=== PATIENT | female | born 1990 | race Caucasian/White ===

== ENCOUNTER → 2018-01-27 | Outpatient (CLI) | payer BC ==
[2018-01-27 08:06] LABS: Cholesterol 163 mg/dL (<200); Glucose 77 mg/dL (74-99); HDL Cholesterol 68 mg/dL (40-60); LDL Cholesterol,Calculated 71 mg/dL (0-99); Triglycerides 121 mg/dL (<150)
[2018-01-27 13:25] LABS: Hemoglobin A1C 4.5 % (4.0-6.0)
== END | disposition home or self-care (01) ==
LOC: LABWHC1 07:00
PROVIDERS: ATTEND Obstetrics & Gynecology
DX: Z00.00 Encounter for general adult medical examination without abnormal findings (principal)
CPT/HCPCS: 36415; 80061; 82947; 83036

== ENCOUNTER → 2018-03-04 | Outpatient (CLI) | payer BC ==
[2018-03-04 08:00] LABS: HCT 32.9 % (34.0-46.0); HGB 11.5 gm/dL (11.4-16.0); MCH 29.9 pg (25.0-35.0); MCHC 34.8 g/dL (31.0-37.0); Mean Platelet Volume 7.2; Platelet Count 224 k/uL (150-450); RBC 3.83 m/uL (3.80-5.40); RDW 13.3 % (11.5-15.5); WBC 11.9 k/uL (3.8-10.6)
== END | disposition home or self-care (01) ==
LOC: LABWHC1 07:24
PROVIDERS: ATTEND Obstetrics & Gynecology
DX: Z34.82 Encounter for supervision of other normal pregnancy, second trimester (principal)
CPT/HCPCS: 36415; 85027; 86850

== ENCOUNTER → 2018-03-06 | Outpatient (CLI) | payer BC | LOC: LABWHC1 08:50 | PROVIDERS: ATTEND Obstetrics & Gynecology | DX: Z34.82 Encounter for supervision of other normal pregnancy, second trimester (principal) | CPT/HCPCS: 36415; 82950 ==

== ENCOUNTER 2018-05-31 05:57 | Inpatient (IN) | payer BC ==
--- NOTE | 2018-05-30 20:14 | P.HPOB ---
History of Present Illness H&P Date: 05/30/18 Chief Complaint: Induction of labor This is a 27 y.o. female 2, para 1, with an estimated date of confinement of 06/02/2018, estimated gestational age of 39-5/7 weeks, who presents for induction of labor. She is feeling irregular contractions and pressure. course has been uncomplicated. labs: Hepatitis B surface antigen-neg RPR-neg Rubella-immune Blood type-O+ Antibody screen-neg Hemoglobin-12.9 Random glucose-81 1 hr GTT-106 GBS-neg OB Hx: . History of 1 vaginal delivery. Systems Coordinator Hx: No hx STDs Review of Systems Constitutional: Denies chills, Denies fever Eyes: denies blurred vision, denies pain Cardiovascular: Denies chest pain, Denies shortness of breath Gastrointestinal: Reports abdominal pain (irregular contractions), Denies diarrhea, Denies nausea, Denies vomiting Genitourinary: Reports pelvic pain, Reports Musculoskeletal: Reports low back pain Neurological: Denies numbness, Denies weakness Psychiatric: Denies anxiety, Denies depression Past Medical History Past Medical History: No Reported History Additional Past Medical History / Comment(s): Eczema History of Any Multi-Drug Resistant Organisms: None Reported Past Surgical History: No Surgical Hx Reported Past Anesthesia/Blood Transfusion Reactions: No Reported Reaction Past Psychological History: No Psychological Hx Reported Smoking Status: Never smoker Past Alcohol Use History: Occasional Past Drug Use History: None Reported - Past Family History Mother History Unknown: Yes Medications and Allergies Home Medications Medication Instructions Recorded Confirmed Type Ixz-Koau-Owlkk Acid 1 cap PO DAILY 09/17/16 09/18/16 History [-U Capsule (formulary)] Allergies Allergy/AdvReac Type Severity Reaction Status Date / Time Penicillins Allergy Rash/Hives Verified 09/18/16 03:11 Exam Osteopathic Statement: *. No significant issues noted on an osteopathic structural exam other than those noted in the History and Physical/Consult. HEENT: within normal limits Heart: regular rate and rhythm Lungs: clear to ausculation bilaterally Abdomen: soft, heart tones: 140's by doppler Extremities: neg. Delmy's Assessment and Plan (1) 39 weeks gestation of Status: Acute Code(s): Z3A.39 - 39 WEEKS GESTATION OF SNOMED Code( s): 22614114 Plan: Proceed with oxytocin induction of labor. Expectant management. Epidural anesthesia if desired.
[2018-05-31] MEDS ORDERED: OXYTOCIN 10 UNIT/ML 1 ML VIAL IM PRN (06:06)
[2018-05-31] MEDS ORDERED: LIDOCAINE 1% 20 ML VIAL (10MG/ML) FOR IV START INTRADERMA PRN (06:06)
[2018-05-31] MEDS ORDERED: TERBUTALINE 1 MG/ML VIAL SQ PRN (06:06)
[2018-05-31] MEDS ORDERED: LIDOCAINE 1% (PF) 10 MG/ML (30 ML SDV) SQ PRN (06:06)
[2018-05-31] MEDS ORDERED: CARBOPROST TROMETHAMINE 250 MCG/ML 1 ML AMP IM PRN (06:06)
[2018-05-31] MEDS ORDERED: METHYLERGONOVINE 0.2 MG/ML 1 ML AMP IM PRN (06:06)
[2018-05-31] MEDS: LACTATED RINGERS 1,000 ML IV SCH ×3 (06:16→17:00)
[2018-05-31] MEDS: OXYTOCIN 20 UNITS/1000 ML NS 1,000 ML IV SCH ×2 (06:24→19:19)
[2018-05-31 06:45] LABS: Basophils % (A) 0 %; Eosinophils # (A) 0.2 k/uL (0-0.7); Eosinophils % (A) 2 %; HCT 35.2 % (34.0-46.0); HGB 12.2 gm/dL (11.4-16.0); Lymphocytes # (A) 1.6 k/uL (1.0-4.8); Lymphocytes % (A) 17 %; MCH 29.7 pg (25.0-35.0); MCHC 34.6 g/dL (31.0-37.0); MCV 85.9 fL (80.0-100.0); Mean Platelet Volume 7.5; Monocytes # (A) 0.4 k/uL (0-1.0); Monocytes % (A) 5 %; Neutrophils # (A) 6.8 k/uL (1.3-7.7); Neutrophils % (A) 74 %; Platelet Count 197 k/uL (150-450); RDW 13.5 % (11.5-15.5); WBC 9.1 k/uL (3.8-10.6)
[2018-05-31] MEDS ORDERED: ROPIVACAINE 100 MG, fentaNYL (PF) 200 MCG in SODIUM CHLORIDE 0.9% 76 ML EPIDURAL ONE (14:38)
--- NOTE | 2018-05-31 18:54 | P.PROBDLV ---
Vaginal Delivery Note - . Vaginal Delivery Note: The patient progressed to complete dilation after oxytocin induction of labor and artificial rupture of membranes with clear fluid noted. She did receive epidural anesthesia. Once reaching complete dilation, she began pushing. 's head came to a crown. With one further push, the infant's head delivered across the perineum in a left occiput anterior lie. Infant's nose and mouth are bulb suctioned at the perineum. With one further push, the remainder the infant easily delivers and is placed on mother's abdomen. A short cord was noted. Cord was clamped and cut and was taken to warmer for evaluation. A viable female was noted with scores of 9 at 1 minute and 9 at 5 minutes and infant weight of 7 lbs. 14 oz. Placenta delivered shortly thereafter, intact, with a three-vessel cord. Uterus contracted fairly well after oxytocin was given and uterine massage was carried out. Inspection of the perineum revealed a second-degree perineal laceration. This area was anesthetized with 1% lidocaine and then sutured with 30 and 2-0 Vicryl suture in the usual multilayer fashion. Estimated blood loss is approximately 200 mL's. Mother and infant are in stable condition.
[2018-05-31] MEDS ORDERED: SIMETHICONE 80 MG CHEWABLE PO PRN (19:23)
[2018-05-31] MEDS ORDERED: BENZOCAINE/MENTHOL SPRAY 1 GM/SPRAY AEROSOL TOPICAL PRN (19:23)
[2018-05-31] MEDS ORDERED: HYDROCORTISONE 2.5% RECTAL CREAM 30 GM TUBE RECTAL PRN (19:23)
[2018-05-31] MEDS ORDERED: ZOLPIDEM 5 MG TAB PO PRN (19:23)
[2018-05-31] MEDS ORDERED: ACETAMINOPHEN TAB 325 MG TAB PO PRN (19:23)
[2018-05-31] MEDS ORDERED: diphenhydrAMINE 50 MG CAP PO PRN (19:23)
[2018-05-31] MEDS ORDERED: diphenhydrAMINE 50 MG/ML 1 ML VIAL IVP PRN ×2 (19:23)
[2018-05-31] MEDS ORDERED: LANOLIN CREAM 5 GM TUBE TOPICAL PRN (19:23)
[2018-05-31] MEDS ORDERED: diphenhydrAMINE 25 MG CAP PO PRN (19:23)
[2018-05-31] MEDS ORDERED: WITCH HAZEL 1 EACH MED..PAD TOPICAL PRN (19:23)
[2018-05-31] MEDS ORDERED: OXYTOCIN 20 UNITS/1000 ML NS 1,000 ML IV SCH (19:23)
[2018-05-31] MEDS: IBUPROFEN 600 MG TAB PO PRN (22:05)
[2018-05-31] MEDS: SENNOSIDES-DOCUSATE SODIUM 1 EACH TAB PO SCH ×2 (22:05)
[2018-06-01] MEDS: IBUPROFEN 600 MG TAB PO PRN ×3 (03:51→19:19)
[2018-06-01 07:48] LABS: Basophils % (A) 0 %; Eosinophils # (A) 0.1 k/uL (0-0.7); Eosinophils % (A) 1 %; HCT 28.9 % (34.0-46.0); Lymphocytes # (A) 1.9 k/uL (1.0-4.8); Lymphocytes % (A) 17 %; MCH 30.1 pg (25.0-35.0); MCHC 34.5 g/dL (31.0-37.0); MCV 87.4 fL (80.0-100.0); Mean Platelet Volume 7.6; Monocytes # (A) 0.4 k/uL (0-1.0); Monocytes % (A) 4 %; Neutrophils # (A) 8.3 k/uL (1.3-7.7); Neutrophils % (A) 75 %; Platelet Count 179 k/uL (150-450); RBC 3.31 m/uL (3.80-5.40); RDW 13.7 % (11.5-15.5)
--- NOTE | 2018-06-01 08:17 | P.DS ---
Providers Date of admission: 05/31/18 05:57 Expected date of discharge: 06/01/18 Attending physician: Regina King Primary care physician: Stated None - Discharge Diagnosis(es) (1) 39 weeks gestation of Current Visit: No Status: Acute Hospital Course: This is a 27-year-old female 2 para 1 at 39-5/7 weeks who presented for induction of labor. She underwent oxytocin induction of labor and delivered vaginally a viable female with scores of 9 at 1 minute and 9 at 5 minutes and weight of 7 lbs. 14 oz. Her course has been uncomplicated. Lochia is decreasing. She is breast-feeding. Vital signs are stable. Abdomen is soft with fundus firm and nontender. Extremities show negative Homans. Impression is status post vaginal delivery day #1. Plan is to discharge home today. Routine instructions are given. She will be given a prescription for ibuprofen. She has a breast pump at home. She is advised to call the office if she has any further questions or concerns prior to her appointment time. Procedures: Oxytocin induction of labor Spontaneous vaginal delivery of a viable female infant on 05/31/2018 Patient Condition at Discharge: Stable Plan - Discharge Summary New Discharge Prescriptions: New Ibuprofen [Motrin] 600 mg PO Q6HR PRN #60 tab PRN Reason: Mild Pain Or Fever >= 100.5 Continue Dpd-Xyjs-Dcdrg Acid [-U Capsule (formulary)] 1 cap PO DAILY Discharge Medication List Plo-Bcuj-Wdnoa Acid [-U Capsule (formulary)] 1 cap PO DAILY [History] Ibuprofen [Motrin] 600 mg PO Q6HR PRN #60 tab 06/01/18 [Rx] Follow up Appointment(s)/Referral(s): Regina King DO [Doctor of Osteopathic Medicine] - 6 Weeks Activity/Diet/Wound Care/Special Instructions: Instructions 1. Do not begin any exercise program for 3 weeks. 2. Do not resume sexual relations for 3 weeks or longer if uncomfortable. 3. You may take tub baths or showers at any time. 4. You may use tampons if desired after 3 weeks. 5. Keep the area of episiotomy (stitches) clean and dry. 6. If you are not nursing, wear a good fitting, supportive bra during the day and limit fluid intake for at least 1 week to prevent breast engorgement. 7. Call the office, [phone], within the next week to make appointment for your 6 week checkup if it has not already been made. 8. Report any of the following occurrences to the doctor promptly: a. Heavy, excessive bleeding b. Chills, fever c. Burning or frequency of urination d. Pain or redness and breasts if nursing e. Increasing pain or swelling in episiotomy (stitches). In addition to the above instructions, the following additional should be followed: 1. No heavy lifting or straining (exercising) until after 6 week checkup. 2. Keep abdominal incision clean and dry: You may wear a dressing if more comfortable. 3. Make office appointment for 10 days after going home or as instructed by her doctor. Discharge Disposition: HOME SELF-CARE
[2018-06-01] MEDS: SENNOSIDES-DOCUSATE SODIUM 1 EACH TAB PO SCH ×2 (08:32→19:19)
[2018-06-01] MEDS ORDERED: Rhogam IMMUNE GLOBULIN 1,500 UNIT/1 ML IM ONE (11:51)
[2018-06-02 00:01] VITALS: TEMP 98.4
[2018-06-02] MEDS: IBUPROFEN 600 MG TAB PO PRN (08:24)
[2018-06-02] MEDS: SENNOSIDES-DOCUSATE SODIUM 1 EACH TAB PO SCH (08:25)
[2018-06-02 09:26] VITALS: BP 112/64; PULSE 93; RESP 18
== END 2018-06-02 10:30 | disposition home or self-care (01) | DRG 775 ==
LOC: 4FBP 05:57
PROVIDERS: ADMIT Obstetrics & Gynecology; ATTEND Obstetrics & Gynecology
PROC: 10E0XZZ Delivery of Products of Conception, External Approach (ICD-10-PCS; principal; 2018-05-31)
PROC: 0KQM0ZZ Repair Perineum Muscle, Open Approach (ICD-10-PCS; 2018-05-31)
PROC: 00HU33Z Insertion of Infusion Device into Spinal Canal, Percutaneous Approach (ICD-10-PCS; 2018-05-31)
PROC: 3E0R3BZ Introduction of Anesthetic Agent into Spinal Canal, Percutaneous Approach (ICD-10-PCS; 2018-05-31)
PROC: 3E033VJ Introduction of Other Hormone into Peripheral Vein, Percutaneous Approach (ICD-10-PCS; 2018-05-31)
PROC: 10907ZC Drainage of Amniotic Fluid, Therapeutic from Products of Conception, Via Natural or Artificial Opening (ICD-10-PCS; 2018-05-31)
DX: O69.3XX0 Labor and delivery complicated by short cord, not applicable or unspecified (principal); Z37.0 Single live birth; O70.1 Second degree perineal laceration during delivery; Z3A.39 39 weeks gestation of pregnancy; Z88.0 Allergy status to penicillin; Z87.2 Personal history of diseases of the skin and subcutaneous tissue
CPT/HCPCS: 85025; 85461

== ENCOUNTER → 2018-12-17 | Outpatient (CLI) | payer BC ==
[2018-12-17 07:34] LABS: Basophils % (A) 0 %; Eosinophils # (A) 0.2 k/uL (0-0.7); Eosinophils % (A) 2 %; HCT 38.3 % (34.0-46.0); HGB 12.8 gm/dL (11.4-16.0); Lymphocytes # (A) 2.7 k/uL (1.0-4.8); Lymphocytes % (A) 33 %; MCH 28.1 pg (25.0-35.0); MCHC 33.4 g/dL (31.0-37.0); MCV 84.1 fL (80.0-100.0); Mean Platelet Volume 7.1; Monocytes # (A) 0.4 k/uL (0-1.0); Monocytes % (A) 5 %; Neutrophils # (A) 4.7 k/uL (1.3-7.7); Neutrophils % (A) 59 %; Platelet Count 277 k/uL (150-450); RBC 4.56 m/uL (3.80-5.40); RDW 13.3 % (11.5-15.5); WBC 8.1 k/uL (3.8-10.6)
[2018-12-17 11:10] LABS: ALT 27 U/L (8-44); AST 27 U/L (13-35); Alkaline Phosphatase 115 U/L (41-126); Calcium 9.1 mg/dL (8.7-10.3); Carbon Dioxide 28.5 mmol/L (21.6-31.8); Chloride 107 mmol/L (96-109); Cholesterol 118 mg/dL (0-200); Glucose 83 mg/dL (70-110); Potassium 3.7 mmol/L (3.5-5.5); Sodium 142 mmol/L (135-145); Total Bilirubin 0.5 mg/dL (0.2-1.2); Total Protein 6.2 g/dL (6.2-8.2); Triglycerides <50.0 mg/dL (0.0-149.0); VLDL Calculation 9.98 mg/dL (5.00-40.00)
== END ==
LOC: LABWHC1 07:05
PROVIDERS: ATTEND Nurse Practitioner Family
DX: Z00.00 Encounter for general adult medical examination without abnormal findings (principal)
CPT/HCPCS: 36415; 80053; 80061; 84439; 84443; 85025

== ENCOUNTER → 2019-01-19 | Outpatient (CLI) | payer BC | END | disposition home or self-care (01) | LOC: LABWHC1 07:05 | PROVIDERS: ATTEND Nurse Practitioner Family | DX: R94.6 Abnormal results of thyroid function studies (principal) | CPT/HCPCS: 36415; 84439; 84443; 84481 ==

== ENCOUNTER 2019-07-06 06:55 | Emergency (ER) | payer BC ==
[2019-07-06 07:04] VITALS: RESP 18
[2019-07-06] MEDS ORDERED: METOCLOPRAMIDE 5 MG/ML 2 ML VIAL IVP STA (07:09)
[2019-07-06] MEDS ORDERED: SODIUM CHLORIDE 0.9% 1,000 ML IV STA (07:25)
--- NOTE | 2019-07-06 07:35 | ED ---
General Adult HPI - General Chief complaint: Dizziness Stated complaint: dizziness/14 wks preg Time Seen by Provider: 07/06/19 07:08 Source: patient Mode of arrival: ambulatory Limitations: no limitations - History of Present Illness Initial comments: Dictation was produced using [employer] dictation software. please excuse any grammatical, word or spelling errors. Chief Complaint: 28-year-old female who is approximately 14 weeks presents with dizziness. History of Present Illness: She 28-year-old female she is 14 weeks . This is her third . Patient has established care with coronary care unit nurse. Patient states she's been feeling dizzy since yesterday. She had one episode of vomiting yesterday. Patient has been having some URI type symptoms as well. Patient denies any pelvic pain or vaginal bleeding. Patient had one episode of nonbilious nonbloody emesis yesterday. Denies any cough or sore throat. She just has a runny nose. Patient does take her vitamins. The ROS documented in this emergency department record has been reviewed and confirmed by me. Those systems with pertinent positive or negative responses have been documented in the HPI. All other systems are other negative and/or noncontributory. PHYSICAL EXAM: General Impression: Alert and oriented x3, not in acute distress HEENT: Normocephalic atraumatic, extra-ocular movements intact, pupils equal and reactive to light bilaterally, mucous membranes moist. Cardiovascular: Heart regular rate and rhythm, S1&S2 audible, no murmurs, rubs or gallops Chest: Lungs clear to auscultation bilaterally, no rhonchi, no wheeze, no rales Abdomen: Bowel sounds present, abdomen soft, non-tender, non-distended, no organomegaly Musculoskeletal: Pulses present and equal in all extremities, no peripheral edema Motor: no focal deficits noted Neurological: CN II-XII grossly intact, no focal motor or sensory deficits noted Skin: Intact with no visualized rashes Psych: Normal affect and mood ED course: 28 yo female presents with dizziness. She is 14 weeks . She does not have any pelvic or vaginal complaints. At this point no indication for ultrasound. Vital signs upon arrival are within acceptable limits. Patient's well-appearing. Lab to evaluation obtained. Mild cytosis 10.9 likely physiologic from . Hemoglobin 11.3. Dispense be around patient's baseline. Metabolic panel is negative. Urinalysis negative. Influenza test is negative. Patient given intravenous fluids with stable medical condition. She did not want any antinausea medication. This point patient clear for discharge. Patient was notified of the results. She is told to follow-up with her coronary care unit nurse. We secondary to versus URI. - Related Data Home Medications Medication Instructions Recorded Confirmed Rvr-Blfz-Bprsr Acid 1 cap PO HS 09/17/16 07/06/19 [-U Capsule (formulary)] Allergies Allergy/AdvReac Type Severity Reaction Status Date / Time Penicillins Allergy Rash/Hives Verified 07/06/19 08:02 Review of Systems ROS Statement: Those systems with pertinent positive or pertinent negative responses have been documented in the HPI. ROS Other: All systems not noted in ROS Statement are negative. Past Medical History Past Medical History: No Reported History Additional Past Medical History / Comment(s): Eczema History of Any Multi-Drug Resistant Organisms: None Reported Past Surgical History: No Surgical Hx Reported Past Anesthesia/Blood Transfusion Reactions: No Reported Reaction Past Psychological History: No Psychological Hx Reported Smoking Status: Never smoker Past Alcohol Use History: None Reported Past Drug Use History: None Reported - Past Family History Mother History Unknown: Yes General Exam Limitations: no limitations Course Vital Signs 07/06/19 07:00 Temperature 98.1 F Pulse Rate 85 Respiratory 18 Rate Blood Pressure 116/67 O2 Sat by Pulse 100 Oximetry Medical Decision Making - Lab Data Result diagrams: 07/06/19 07:38 07/06/19 07:38 Lab Results 07/06/19 07/06/19 07/06/19 Range/Units 07:30 07:37 07:38 WBC (3.8-10.6) k/uL RBC (3.80-5.40) m/uL Hgb (11.4-16.0) gm/dL Hct (34.0-46.0) % MCV (80.0-100.0) fL MCH (25.0-35.0) pg MCHC (31.0-37.0) g/dL RDW (11.5-15.5) % Plt Count (150-450) k/uL Neutrophils % % Lymphocytes % % Monocytes % % Eosinophils % % Basophils % % Neutrophils # (1.3-7.7) k/uL Lymphocytes # (1.0-4.8) k/uL Monocytes # (0-1.0) k/uL Eosinophils # (0-0.7) k/uL Basophils # (0-0.2) k/uL Sodium 136 L (137-145) mmol/L Potassium 4.1 (3.5-5.1) mmol/L Chloride 105 (98-107) mmol/L Carbon Dioxide 23 (22-30) mmol/L Anion Gap 8 mmol/L BUN 8 (7-17) mg/dL Creatinine 0.47 L (0.52-1.04) mg/dL Est GFR (CKD-EPI)AfAm >90 (>60 ml/min/1.73 sqM) Est GFR (CKD-EPI)NonAf >90 (>60 ml/min/1.73 sqM) Glucose 85 (74-99) mg/dL POC Glucose (mg/dL) 95 (75-99) mg/dL POC Glu Color Consultant ID Marylou Vargas Calcium 8.7 (8.4-10.2) mg/dL Magnesium 1.8 (1.6-2.3) mg/dL Urine Color Urine Appearance (Clear) Urine pH (5.0-8.0) Ur Specific [place] (1.001-1.035) Urine Protein (Negative) Urine Glucose (UA) (Negative) Urine Ketones (Negative) Urine Blood (Negative) Urine Nitrite (Negative) Urine Bilirubin (Negative) Urine Urobilinogen (<2.0) mg/dL Ur Leukocyte Esterase (Negative) Influenza Type A RNA Not Detected (Not Detectd) Influenza Type B (PCR) Not Detected (Not Detectd) 07/06/19 07/06/19 Range/Units 07:38 07:38 WBC 10.9 H (3.8-10.6) k/uL RBC 3.77 L (3.80-5.40) m/uL Hgb 11.3 L (11.4-16.0) gm/dL Hct 32.3 L (34.0-46.0) % MCV 85.7 (80.0-100.0) fL MCH 29.9 (25.0-35.0) pg MCHC 34.9 (31.0-37.0) g/dL RDW 15.1 (11.5-15.5) % Plt Count 248 (150-450) k/uL Neutrophils % 76 % Lymphocytes % 18 % Monocytes % 3 % Eosinophils % 2 % Basophils % 0 % Neutrophils # 8.3 H (1.3-7.7) k/uL Lymphocytes # 2.0 (1.0-4.8) k/uL Monocytes # 0.3 (0-1.0) k/uL Eosinophils # 0.2 (0-0.7) k/uL Basophils # 0.0 (0-0.2) k/uL Sodium (137-145) mmol/L Potassium (3.5-5.1) mmol/L Chloride (98-107) mmol/L Carbon Dioxide (22-30) mmol/L Anion Gap mmol/L BUN (7-17) mg/dL Creatinine (0.52-1.04) mg/dL Est GFR (CKD-EPI)AfAm (>60 ml/min/1.73 sqM) Est GFR (CKD-EPI)NonAf (>60 ml/min/1.73 sqM) Glucose (74-99) mg/dL POC Glucose (mg/dL) (75-99) mg/dL POC Glu Color Consultant ID Calcium (8.4-10.2) mg/dL Magnesium (1.6-2.3) mg/dL Urine Color Light Yellow Urine Appearance Clear (Clear) Urine pH 6.5 (5.0-8.0) Ur Specific [place] 1.008 (1.001-1.035) Urine Protein Negative (Negative) Urine Glucose (UA) Negative (Negative) Urine Ketones Negative (Negative) Urine Blood Negative (Negative) Urine Nitrite Negative (Negative) Urine Bilirubin Negative (Negative) Urine Urobilinogen <2.0 (<2.0) mg/dL Ur Leukocyte Esterase Negative (Negative) Influenza Type A RNA (Not Detectd) Influenza Type B (PCR) (Not Detectd) Disposition Clinical Impression: Dizziness Disposition: HOME SELF-CARE Condition: Good Instructions (If sedation given, give patient instructions): Dizziness (ED) Is patient prescribed a controlled substance at d/c from ED?: No Referrals: Shaheen Cooley Jr, DO [Primary Care Provider] - 1-2 days Time of Disposition: 10:03
[2019-07-06 07:38] LABS: Glucose,Whole Blood 95 mg/dL (75-99)
[2019-07-06 08:10] LABS: African American GFR (CKD) >90 (>60 ml/min/1.73 sqM); Anion Gap 8 mmol/L; Basophils % (A) 0 %; Blood Urea Nitrogen 8 mg/dL (7-17); Calcium 8.7 mg/dL (8.4-10.2); Carbon Dioxide 23 mmol/L (22-30); Chloride 105 mmol/L (98-107); Eosinophils # (A) 0.2 k/uL (0-0.7); Eosinophils % (A) 2 %; Glucose 85 mg/dL (74-99); HCT 32.3 % (34.0-46.0); HGB 11.3 gm/dL (11.4-16.0); Lymphocytes % (A) 18 %; MCH 29.9 pg (25.0-35.0); MCHC 34.9 g/dL (31.0-37.0); MCV 85.7 fL (80.0-100.0); Magnesium 1.8 mg/dL (1.6-2.3); Mean Platelet Volume 7.4; Monocytes # (A) 0.3 k/uL (0-1.0); Monocytes % (A) 3 %; Neutrophils # (A) 8.3 k/uL (1.3-7.7); Neutrophils % (A) 76 %; Platelet Count 248 k/uL (150-450); Potassium 4.1 mmol/L (3.5-5.1); RBC 3.77 m/uL (3.80-5.40); RDW 15.1 % (11.5-15.5); Sodium 136 mmol/L (137-145); WBC 10.9 k/uL (3.8-10.6)
[2019-07-06 09:28] LABS: Appearance,Urine Clear (Clear); Bilirubin,Urine Negative (Negative); Blood,Urine Negative (Negative); Color,Urine Light Yellow; Glucose,Urine (UA) Negative (Negative); Ketones,Urine Negative (Negative); Leukocyte Esterase,Urine Negative (Negative); Nitrite,Urine Negative (Negative); PH, Urine 6.5 (5.0-8.0); Protein,Urine Negative (Negative); Specific Gravity,Urine 1.008 (1.001-1.035); Urobilinogen,Urine <2.0 mg/dL (<2.0)
[2019-07-06 10:40] VITALS: BP 104/59; PULSE 65; TEMP 98.2
== END 2019-07-06 10:39 | disposition home or self-care (01) ==
LOC: EC 06:55
DX: O99.89 Other specified diseases and conditions complicating pregnancy, childbirth and the puerperium (principal); R42 Dizziness and giddiness; R79.89 Other specified abnormal findings of blood chemistry; R09.89 Other specified symptoms and signs involving the circulatory and respiratory systems; Z88.0 Allergy status to penicillin; Z3A.14 14 weeks gestation of pregnancy; Z53.20 Procedure and treatment not carried out because of patient's decision for unspecified reasons
CPT/HCPCS: 36415; 80048; 81003; 83735; 85025; 87502; 96360; 99284

== ENCOUNTER 2019-12-06 17:26 | Emergency (ER) | payer BC ==
[2019-12-06 18:20] VITALS: BP 108/68; RESP 20; TEMP 97.9
[2019-12-06] MEDS ORDERED: PSEUDOEPHEDRINE 30 MG TAB PO STA (18:59)
[2019-12-06] MEDS ORDERED: guaiFENesin SYRUP 100MG/5ML 200 MG/10 ML CUP PO STA (18:59)
--- NOTE | 2019-12-06 20:09 | ED ---
URI HPI - General Chief Complaint: Upper Respiratory Infection Stated Complaint: flu symptoms Time Seen by Provider: 12/06/19 18:51 Source: patient Mode of arrival: ambulatory Limitations: no limitations - History of Present Illness Initial Comments: 29-year-old female patient presents to the emergency department today for evaluation of upper respiratory symptoms. Patient states starting this morning she developed sore throat, cough, nasal congestion. Patient states she is also experiencing chest tightness and some mild intermittent shortness of breath. Patient believes she may have influenza. She is 35 weeks . Denies abdominal pain. States she is feeling normal movement. Denies any abnormal vaginal bleeding or discharge. She was prescribed Tamiflu by her BPM ARCHITECT but they requested she come in to be tested for influenza prior to starting the medication. Patient states she has been taking Tylenol throughout the day. She denies any other medication use. Denies any significant past medical history. Denies history of smoking. She is unable to receive influenza vaccine due to an ALLERGY. Patient denies any recent rash, abdominal pain, nausea, vomiting, diarrhea, constipation, back pain, numbness, tingling, dizziness, weakness, hematuria, dysuria, urinary urgency, urinary frequency, headache, visual changes, or any other complaints. She did have an ultrasound today which showed normal development. No complications. - Related Data Home Medications Medication Instructions Recorded Confirmed Rhn-Zroq-Svfxi Acid 1 cap PO HS 09/17/16 12/06/19 [-U Capsule (formulary)] Allergies Allergy/AdvReac Type Severity Reaction Status Date / Time influenza A (H1N1) virus Allergy Rash/Hives Verified 12/06/19 19:33 vaccine [id number] 2008 [From influenza A (H1N1)] Penicillins Allergy Rash/Hives Verified 12/06/19 19:33 Review of Systems ROS Statement: Those systems with pertinent positive or pertinent negative responses have been documented in the HPI. ROS Other: All systems not noted in ROS Statement are negative. Past Medical History Past Medical History: No Reported History Additional Past Medical History / Comment(s): Eczema History of Any Multi-Drug Resistant Organisms: None Reported Past Surgical History: No Surgical Hx Reported Past Anesthesia/Blood Transfusion Reactions: No Reported Reaction Past Psychological History: No Psychological Hx Reported Smoking Status: Never smoker Past Alcohol Use History: None Reported Past Drug Use History: None Reported - Past Family History Mother History Unknown: Yes General Exam Limitations: no limitations General appearance: alert, in no apparent distress, other (This is a well- developed, well-nourished adult female patient in no acute distress. Vital signs upon presentation are temperature 97.9F, pulse 105, respirations 20, blood pressure 108/68, pulse ox 98% on room air) Eye exam: Present: normal appearance, PERRL, EOMI. Absent: scleral icterus, conjunctival injection, periorbital swelling ENT exam: Present: mucous membranes moist, TM's normal bilaterally. Absent: normal oropharynx (Pharyngeal erythema) Neck exam: Present: normal inspection. Absent: tenderness, meningismus, lymphadenopathy Respiratory exam: Present: normal lung sounds bilaterally. Absent: respiratory distress, wheezes, rales, rhonchi, stridor Cardiovascular Exam: Present: normal rhythm, tachycardia, normal heart sounds. Absent: systolic murmur, diastolic murmur, rubs, gallop, clicks GI/Abdominal exam: Present: normal bowel sounds, other (Gravid abdomen). Absent: distended, tenderness, guarding, rebound, rigid Neurological exam: Present: alert, oriented X3, CN II-XII intact Psychiatric exam: Present: normal affect, normal mood Skin exam: Present: warm, dry, intact, normal color. Absent: rash Course Vital Signs 12/06/19 12/06/19 18:16 20:42 Temperature 97.9 F Pulse Rate 105 H 95 Respiratory 20 Rate Blood Pressure 108/68 O2 Sat by Pulse 98 Oximetry Medical Decision Making - Medical Decision Making 29-year-old female patient who is 35 weeks presents to the emergency department today for evaluation of upper respiratory symptoms, fever, body aches. Physical examination reveals clear equal lung sounds. Vital signs were without major abnormalities. She did test positive for influenza A. Symptoms started yesterday, she is experiencing no significant respiratory distress, lung sounds are clear, and she is maintaining good oxygen saturation. Given her p regnancy will did not perform chest x-ray at this time. Her BPM ARCHITECT did call her and a prescription for Tamiflu. We did discuss increasing fluids, resting. We did discuss rvcj-wab-wzttqau remedies for symptom relief and . She is instructed to follow-up with the primary care physician and BPM ARCHITECT for recheck as possible. Return parameters discussed in detail. She verbalizes tamia verma and agrees with this plan. - Lab Data Lab Results 12/06/19 Range/Units 18:20 Influenza Type A RNA Detected H (Not Detectd) Influenza Type B (PCR) Not Detected (Not Detectd) Disposition Clinical Impression: Influenza A Disposition: HOME SELF-CARE Condition: Good Instructions (If sedation given, give patient instructions): Influenza (ED) Additional Instructions: Rest. Increase fluids. Complete medication as directed. Follow-up through primary care physician for recheck in 1-2 days. Return to the emergency department immediately for any new, worsening, or concerning symptoms. Some medications you may try are usld-alc-ngyiyfv that are safe in : Nasal Saline (for nasal congestion) Afrin (for nasal congestion) (No longer than three days) Cough drops and lozenges (For sore throat) Tylenol (For pain and fever) Robitussin (for cough) Increase fluids. Get adequate rest. Follow up with your primary care physician or OBGYN for recheck as soon as possible. Is patient prescribed a controlled substance at d/c from ED?: No Referrals: Shaheen Cooley Jr, [Primary Care Provider] - 1-2 days Time of Disposition: 20:20
[2019-12-06] MEDS ORDERED: OSELTAMIVIR 75 MG CAP PO STA (20:19)
[2019-12-06 20:43] VITALS: PULSE 95
== END 2019-12-06 20:43 | disposition home or self-care (01) ==
LOC: EC 17:26
DX: O99.513 Diseases of the respiratory system complicating pregnancy, third trimester (principal); J10.1 Influenza due to other identified influenza virus with other respiratory manifestations; Z79.899 Other long term (current) drug therapy; Z3A.35 35 weeks gestation of pregnancy; Z88.0 Allergy status to penicillin; Z88.7 Allergy status to serum and vaccine
CPT/HCPCS: 87502; 99284

== ENCOUNTER 2019-12-09 10:11 | Outpatient (CLI) | payer BC ==
[2019-12-09 11:31] LABS: Total Bilirubin 0.8 mg/dL (0.2-1.3)
[2019-12-09 11:53] VITALS: BP 118/78; PULSE 98; RESP 16; TEMP 96.9
--- NOTE | 2019-12-16 01:42 | P.MSEPDOC ---
Presenting Problems - Arrival Data Date of Arrival on Unit: 12/09/19 Time of Arrival on Unit: 10:11 Mode of Transport: Ambulatory - Complaint OB-Reason for Admission/Chief Complaint: Other Comment: itching Medical History - Information : 3 Para: 2 Term: 2 : 0 Abortions: Spontaneous or Elective: 0 Number of Living Children: 2 - Gestational Age Gestational Age by EFFIE (wks/days): 36 Weeks and 1 Days Review of Systems - Review of Systems Constitutional: No problems Breast: No problems ENT: No problems Cardiovascular: No problems Respiratory: No problems Gastrointestinal: No problems Genitourinary: No problems Musculoskeletal: No problems Neurological: No problems Skin: No problems Vital Signs - Temperature Temperature: 96.9 F Temperature Source: Tympanic - Pulse Right Brachial Pulse Rate: 98 Pulse Assessment Method: Automatic Cuff - Respirations Respiratory Rate: 16 Oxygen Delivery Method: Room Air - Blood Pressure Right Arm Blood Pressure: 118/78 Blood Pressure Mean: 91 Blood Pressure Source: Automatic Cuff Medical Screen Scoring (Pre) - Cervical Exam Dilation: Exam Deferred Effacement: Exam Deferred Membranes: Intact - Uterine Contractions Frequency: > 5 minutes apart = 1 Duration: N/A Intensity: N/A - Maternal Vital Signs Maternal Temperature: N/A Maternal Blood Pressure: N/A Signs of Preeclampsia: N/A Maternal Respirations: N/A - Maternal Trauma Maternal Trauma: N/A - Assessment - Baby A Baseline FHR: 135 Heart Rate - NICHD Category: Category I (Normal) = 0 NST: Reactive Position: N/A Station: N/A - Total Score - Baby A Total Score - Baby A: 1 - Total Score - Baby B Total Score - Baby B: 1 - Total Score - Baby C Total Score - Baby C: 1 - Level of Risk - Baby A Level of Risk - Baby A: Low (0-5) - Level of Risk - Baby B Level of Risk - Baby B: Low (0-5) - Level of Risk - Baby C Level of Risk - Baby C: Low (0-5) Physician Notification (Pre) - Physician Notified Physician Notified Date: 12/09/19 Physician Notified Time: 11:45 New Order Received: Yes - Notification Comment Comment: d/c home, f/up on thursday Disposition - Disposition OB Disposition: Discharge to home Discharge Date: 12/09/19 Discharge Time: 11:53 I agree with the RN Medical Screening Exam: Yes Risk & Benefit of care provided described in d/c instruction: Yes Diagnosis: URTICARIA, UNSPECIFIED (Patient sent to triage per Dr. King. There is no evidence of maternal compromise patient was discharged home follow up with Dr. King if she instructed.)
== END 2019-12-09 11:53 | disposition home or self-care (01) ==
LOC: FBPOP 10:11
PROVIDERS: ATTEND Obstetrics & Gynecology
DX: O99.89 Other specified diseases and conditions complicating pregnancy, childbirth and the puerperium (principal); L50.9 Urticaria, unspecified; Z3A.36 36 weeks gestation of pregnancy
CPT/HCPCS: 59025; 82239; 82247; 84450; 84460; 99213

== ENCOUNTER 2019-12-21 10:06 | Inpatient (IN) | payer BC ==
[2019-12-21] MEDS ORDERED: TERBUTALINE 1 MG/ML VIAL SQ PRN (10:41)
[2019-12-21] MEDS ORDERED: METHYLERGONOVINE 0.2 MG/ML 1 ML AMP IM PRN (10:41)
[2019-12-21] MEDS ORDERED: LIDOCAINE 0.5% (PF) 5 MG/ML (50 ML SDV) SQ PRN (10:41)
[2019-12-21] MEDS ORDERED: CARBOPROST TROMETHAMINE 250 MCG/ML 1 ML AMP IM PRN (10:41)
[2019-12-21] MEDS ORDERED: OXYTOCIN 10 UNIT/ML 1 ML VIAL IM PRN (10:41)
[2019-12-21] MEDS ORDERED: OXYTOCIN 30 UNITS/500 ML NS 30 UNIT in SALINE 1 500ML.BAG IV SCH (10:45)
[2019-12-21] MEDS: LACTATED RINGERS 1,000 ML IV SCH ×3 (11:54→22:00)
[2019-12-21 12:24] LABS: Basophils % (A) 0 %; Eosinophils # (A) 0.1 k/uL (0-0.7); Eosinophils % (A) 1 %; HCT 35.8 % (34.0-46.0); HGB 12.1 gm/dL (11.4-16.0); Lymphocytes % (A) 16 %; MCHC 33.9 g/dL (31.0-37.0); MCV 85.6 fL (80.0-100.0); Mean Platelet Volume 8.4; Monocytes # (A) 0.5 k/uL (0-1.0); Monocytes % (A) 4 %; Neutrophils # (A) 9.9 k/uL (1.3-7.7); Neutrophils % (A) 78 %; Platelet Count 289 k/uL (150-450); RBC 4.19 m/uL (3.80-5.40); RDW 13.4 % (11.5-15.5); WBC 12.7 k/uL (3.8-10.6)
--- NOTE | 2019-12-21 18:48 | P.HPOB ---
History of Present Illness H&P Date: 12/21/19 Chief Complaint: Cholestasis of This is a 29-year-old female 3 para 2 with an estimated date of confinement of 01/05/2020, estimated gestational age of 37-6/7 weeks, who presents to labor and delivery after being called from the office to come to labor and delivery to be induced due to cholestasis of . She was seen in the office 2 days ago and was still complaining of itching on her palms and feet and all of her her body. She was previously evaluated for possible cholestasis on 12/09/2019 and at that time by last results came back normal and her liver enzymes were normal. She also had influenza right before that and was given Tamiflu. She stopped the Tamiflu 4 days after starting due to severe itching on her feet and hands. She thought it was a reaction to the Tamiflu. When she was seen on 12/19/2019, I read through the liver enzymes and by last results and the bile acids salts are significantly elevated from her previous check from 10 up to 68. In addition her ALTs was elevated at 69. In light of these findings, she was advised to come to the hospital for induction of labor. She has been feeling irregular contractions. course has been otherwise uncomplicated. Obstetrical history: . History of 2 vaginal deliveries at term. Gynecologic history: No history of sexually-transmitted diseases. Social history: She is . 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 Review of Systems Constitutional: Denies chills, Denies fever Eyes: denies blurred vision, denies pain Ears, nose, mouth and throat: Denies headache, Denies sore throat Cardiovascular: Denies chest pain, Denies shortness of breath Respiratory: Denies cough Gastrointestinal: Reports abdominal pain (Irregular contractions) Genitourinary: Reports pelvic pain, Reports Musculoskeletal: Reports low back pain Integumentary: Reports pruritus (Hands, feet, and all of her her body) Neurological: Denies numbness, Denies weakness Past Medical History Past Medical History: Thyroid Disorder (History of hypothyroidism) Additional Past Medical History / Comment(s): Eczema, varicose veins History of Any Multi-Drug Resistant Organisms: None Reported Past Surgical History: No Surgical Hx Reported Past Anesthesia/Blood Transfusion Reactions: No Reported Reaction Past Psychological History: No Psychological Hx Reported Smoking Status: Never smoker Past Alcohol Use History: None Reported Past Drug Use History: None Reported - Past Family History Mother History Unknown: Yes Medications and Allergies Home Medications Medication Instructions Recorded Confirmed Type Mcj-Vcue-Keide Acid 1 cap PO HS 09/17/16 12/21/19 History [-U Capsule (formulary)] Ferrous Sulfate [Slow Fe] 142 mg PO HS 12/21/19 12/21/19 History Allergies Allergy/AdvReac Type Severity Reaction Status Date / Time influenza A (H1N1) virus Allergy Rash/Hives Verified 12/21/19 10:35 vaccine m-susana-split 2008 [From influenza A (H1N1)] oseltamivir [From Tamiflu] Allergy Itching Verified 12/21/19 18:45 Penicillins Allergy Rash/Hives Verified 12/21/19 10:35 Exam Osteopathic Statement: *. No significant issues noted on an osteopathic structural exam other than those noted in the History and Physical/Consult. Vital Signs Temp Pulse Resp BP Pulse Ox 12/21/19 10:50 98.1 F 105 H 18 115/73 98 Intake and Output 12/21/19 12/21/19 12/21/19 06:59 14:59 22:59 Other: # Voids 1 Weight 81.737 kg HEENT: Within normal limits Heart: Regular rate and rhythm Lungs: Clear to auscultation bilaterally Abdomen: Cervix: 1-1/2-2 cm/60%/-2 station heart tones: Category 1 Contractions: Irregular Extremities: Negative Homans, varicose veins noted bilaterally. Results Result Diagrams: 12/21/19 11:55 Abnormal Lab Results - Last 24 Hours (Table) 12/21/19 Range/Units 11:55 WBC 12.7 H (3.8-10.6) k/uL Neutrophils # 9.9 H (1.3-7.7) k/uL Assessment and Plan (1) 37 weeks gestation of Current Visit: Yes Status: Acute Code(s): Z3A.37 - 37 WEEKS GESTATION OF SNOMED Code(s): 86542951 (2) Cholestasis during in third trimester Current Visit: Yes Status: Acute Code(s): O26.613 - LIVER AND BILIARY TRACT DISORD IN , THIRD TRIMESTER; K83.1 - OBSTRUCTION OF BILE DUCT SNOMED Code(s): 186934596 Plan: Admission with oxytocin induction of labor. Expectant management. Epidural anesthesia if desired.
[2019-12-21] MEDS ORDERED: fentaNYL (PF) 50 MCG/ML 5 ML AMP ONE (21:01)
[2019-12-21] MEDS ORDERED: SODIUM CHLORIDE 0.9% 100 ML BAG ONE (21:01)
[2019-12-21] MEDS ORDERED: ROPIVACAINE 5MG/ML 20ML VIAL ONE (21:01)
--- NOTE | 2019-12-22 01:57 | P.PROBDLV ---
Vaginal Delivery Note - . Vaginal Delivery Note: The patient progressed to complete dilation after oxytocin induction of labor and artificial rupture of membranes with clear fluid noted. She did receive epidural anesthesia. Once reaching complete, she began pushing. Infant's head came to a crown and patient was unable to stop pushing and the infant's head delivered. The remainder the infant easily delivered into the bed. Nose and mouth were bulb suctioned after delivery. Cord was clamped and cut. Infant was taken to warmer for evaluation. A viable male was noted with scores of 8 at 1 minute and 9 at 5 minutes and infant weight of 7 lbs. 13 oz. Placenta delivered shortly thereafter, intact, with a three-vessel cord. Uterus contracted well after oxytocin was given and uterine massage was carried out. Inspection of the perineum revealed a small second-degree perineal laceration. This area was anesthetized with 1% lidocaine and then sutured with 3-0 Vicryl suture in the usual multilayer fashion. Estimated blood loss is approximately 150 mL's. Both mother and infant are in stable condition.
[2019-12-22] MEDS ORDERED: ACETAMINOPHEN TAB 325 MG TAB PO PRN (02:24)
[2019-12-22] MEDS ORDERED: WITCH HAZEL 1 EACH MED..PAD TOPICAL PRN (02:24)
[2019-12-22] MEDS ORDERED: diphenhydrAMINE 50 MG CAP PO PRN (02:24)
[2019-12-22] MEDS ORDERED: OXYTOCIN 20 UNITS/1000 ML NS 1,000 ML IV SCH (02:24)
[2019-12-22] MEDS ORDERED: HYDROCORTISONE 2.5% RECTAL CREAM 30 GM TUBE RECTAL PRN (02:24)
[2019-12-22] MEDS ORDERED: LANOLIN CREAM 5 GM TUBE TOPICAL PRN (02:24)
[2019-12-22] MEDS ORDERED: diphenhydrAMINE 25 MG CAP PO PRN (02:24)
[2019-12-22] MEDS ORDERED: SIMETHICONE 80 MG CHEWABLE PO PRN (02:24)
[2019-12-22] MEDS ORDERED: diphenhydrAMINE 50 MG/ML 1 ML VIAL IVP PRN ×2 (02:24)
[2019-12-22] MEDS ORDERED: ZOLPIDEM 5 MG TAB PO PRN (02:24)
[2019-12-22] MEDS ORDERED: BENZOCAINE/MENTHOL SPRAY 1 GM/SPRAY AEROSOL TOPICAL PRN (02:24)
[2019-12-22] MEDS: SENNOSIDES-DOCUSATE SODIUM 1 EACH TAB PO SCH ×3 (02:54→20:11)
[2019-12-22] MEDS: IBUPROFEN 600 MG TAB PO PRN ×2 (07:43→20:16)
[2019-12-22 07:53] LABS: Basophils % (A) 0 %; Eosinophils % (A) 0 %; HCT 34.6 % (34.0-46.0); HGB 11.4 gm/dL (11.4-16.0); Lymphocytes # (A) 1.9 k/uL (1.0-4.8); Lymphocytes % (A) 8 %; MCH 29.2 pg (25.0-35.0); MCHC 33.1 g/dL (31.0-37.0); MCV 88.2 fL (80.0-100.0); Mean Platelet Volume 8.6; Monocytes # (A) 0.8 k/uL (0-1.0); Monocytes % (A) 4 %; Neutrophils # (A) 20.6 k/uL (1.3-7.7); Neutrophils % (A) 87 %; Platelet Count 323 k/uL (150-450); RBC 3.92 m/uL (3.80-5.40); RDW 13.5 % (11.5-15.5); WBC 23.6 k/uL (3.8-10.6)
[2019-12-22 18:17] VITALS: RESP 16
[2019-12-22] MEDS: PRENATAL VIT-IRON-FOLIC ACID 1 EACH CAP PO SCH ×2 (18:21→22:34)
[2019-12-22] MEDS: FERROUS SULFATE ORAL ELIXIR 300 MG/5 ML CUP PO SCH ×2 (18:21→22:33)
[2019-12-23] MEDS: IBUPROFEN 600 MG TAB PO PRN (06:13)
[2019-12-23] MEDS: SENNOSIDES-DOCUSATE SODIUM 1 EACH TAB PO SCH (08:50)
--- NOTE | 2019-12-23 08:52 | P.DS ---
Providers Date of admission: 12/21/19 10:06 Expected date of discharge: 12/23/19 Attending physician: Regina King Primary care physician: Stated None - Discharge Diagnosis(es) (1) 37 weeks gestation of Current Visit: Yes Status: Acute (2) Cholestasis during in third trimester Current Visit: Yes Status: Acute Hospital Course: This is a 29-year-old female 3 para 2 at 37-6/7 weeks who presented for induction of labor due to cholestasis of . She underwent oxytocin induction of labor and delivered vaginally a viable male on 12/22/2019 with scores of 8 at 1 minute and 9 at 5 minutes and infant weight of 7 lbs. 13 oz. Her course has been uncomplicated. Lochia is decreasing. Pain is fairly well controlled. She is breast-feeding. Vital signs are stable. Abdomen is soft with fundus firm and nontender. Extremities show negative Homans. Impression is status post vaginal delivery day #1. Plan is to discharge home today. Routine instructions are given. She will be given a prescription for ibuprofen. She has a breast pump at home. She is advised to call the office if she has any further questions or concerns prior to her appointment time. Procedures: Oxytocin induction of labor Spontaneous vaginal delivery of a viable male on 12/22/2019 Patient Condition at Discharge: Stable Plan - Discharge Summary New Discharge Prescriptions: New Ibuprofen [Motrin] 600 mg PO Q6HR PRN #60 tab PRN Reason: Mild Pain Or Fever >= 100.5 Continue Dvy-Xxdc-Maxze Acid [-U Capsule (formulary)] 1 cap PO HS No Action Ferrous Sulfate [Slow Fe] 142 mg PO HS Discharge Medication List Xtq-Evvp-Cyhvv Acid [-U Capsule (formulary)] 1 cap PO HS 09/17/16 [History] Ferrous Sulfate [Slow Fe] 142 mg PO HS 12/21/19 [History] Ibuprofen [Motrin] 600 mg PO Q6HR PRN #60 tab 12/23/19 [Rx] Follow up Appointment(s)/Referral(s): Regina King DO [Doctor of Osteopathic Medicine] - 6 Weeks Activity/Diet/Wound Care/Special Instructions: Instructions 1. Do not begin any exercise program for 3 weeks. 2. Do not resume sexual relations for 3 weeks or longer if uncomfortable. 3. You may take tub baths or showers at any time. 4. You may use tampons if desired after 3 weeks. 5. Keep the area of episiotomy (stitches) clean and dry. 6. If you are not nursing, wear a good fitting, supportive bra during the day and limit fluid intake for at least 1 week to prevent breast engorgement. 7. Call the office, [phone], within the next week to make appointment for your 6 week checkup if it has not already been made. 8. Report any of the following occurrences to the doctor promptly: a. Heavy, excessive bleeding b. Chills, fever c. Burning or frequency of urination d. Pain or redness and breasts if nursing e. Increasing pain or swelling in episiotomy (stitches). In addition to the above instructions, the following additional should be followed: 1. No heavy lifting or straining (exercising) until after 6 week checkup. 2. Keep abdominal incision clean and dry: You may wear a dressing if more comfortable. 3. Make office appointment for 10 days after going home or as instructed by her doctor. Discharge Disposition: HOME SELF-CARE
[2019-12-23 09:26] VITALS: BP 109/67; PULSE 78; TEMP 97.6
[2019-12-23 09:56] LABS: Basophils % (A) 0 %; Eosinophils # (A) 0.2 k/uL (0-0.7); Eosinophils % (A) 2 %; Lymphocytes # (A) 2.3 k/uL (1.0-4.8); Lymphocytes % (A) 18 %; MCH 29.2 pg (25.0-35.0); MCHC 32.2 g/dL (31.0-37.0); MCV 90.8 fL (80.0-100.0); Monocytes # (A) 0.4 k/uL (0-1.0); Monocytes % (A) 3 %; Neutrophils # (A) 9.3 k/uL (1.3-7.7); Neutrophils % (A) 75 %; Platelet Count 240 k/uL (150-450); RBC 3.42 m/uL (3.80-5.40); RDW 13.8 % (11.5-15.5); WBC 12.5 k/uL (3.8-10.6)
== END 2019-12-23 14:15 | disposition home or self-care (01) | DRG 805 ==
LOC: 4FBP 10:06
PROVIDERS: ADMIT Obstetrics & Gynecology; ATTEND Obstetrics & Gynecology
PROC: 3E033VJ Introduction of Other Hormone into Peripheral Vein, Percutaneous Approach (ICD-10-PCS; 2019-12-21)
PROC: 00HU33Z Insertion of Infusion Device into Spinal Canal, Percutaneous Approach (ICD-10-PCS; 2019-12-21)
PROC: 10907ZC Drainage of Amniotic Fluid, Therapeutic from Products of Conception, Via Natural or Artificial Opening (ICD-10-PCS; 2019-12-21)
PROC: 3E0R3BZ Introduction of Anesthetic Agent into Spinal Canal, Percutaneous Approach (ICD-10-PCS; 2019-12-21)
PROC: 10E0XZZ Delivery of Products of Conception, External Approach (ICD-10-PCS; principal; 2019-12-22)
PROC: 0KQM0ZZ Repair Perineum Muscle, Open Approach (ICD-10-PCS; principal; 2019-12-22)
DX: O26.62 Liver and biliary tract disorders in childbirth (principal); K83.1 Obstruction of bile duct; Z37.0 Single live birth; O70.1 Second degree perineal laceration during delivery; O99.284 Endocrine, nutritional and metabolic diseases complicating childbirth; E03.9 Hypothyroidism, unspecified; I83.90 Asymptomatic varicose veins of unspecified lower extremity; L30.9 Dermatitis, unspecified; Z3A.37 37 weeks gestation of pregnancy; Z79.899 Other long term (current) drug therapy; Z88.0 Allergy status to penicillin; Z88.7 Allergy status to serum and vaccine; Z88.8 Allergy status to other drugs, medicaments and biological substances
CPT/HCPCS: 85025; 86850; 86870; 86880; 86900; 86901; 88307

== ENCOUNTER → 2020-03-22 | Outpatient (CLI) | payer BC ==
[2020-03-22 11:33] LABS: Basophils % (A) 0 %; Eosinophils # (A) 0.1 k/uL (0-0.7); Eosinophils % (A) 1 %; HCT 38.5 % (34.0-46.0); HGB 12.5 gm/dL (11.4-16.0); Lymphocytes # (A) 2.2 k/uL (1.0-4.8); Lymphocytes % (A) 26 %; MCH 27.4 pg (25.0-35.0); MCHC 32.5 g/dL (31.0-37.0); MCV 84.1 fL (80.0-100.0); Mean Platelet Volume 7.2; Monocytes # (A) 0.4 k/uL (0-1.0); Monocytes % (A) 4 %; Neutrophils # (A) 5.8 k/uL (1.3-7.7); Neutrophils % (A) 67 %; Platelet Count 328 k/uL (150-450); RBC 4.57 m/uL (3.80-5.40); RDW 12.7 % (11.5-15.5); WBC 8.6 k/uL (3.8-10.6)
[2020-03-22 22:22] LABS: Albumin 4.4 g/dL (3.80-4.90); Albumin/Globulin Ratio 1.83 (1.60-3.17); Bilirubin, Conjugated 0.2 mg/dL (0.20-0.40); Bilirubin,Unconjugated 0.3 mg/dL; Globulin 2.4 g/dL (1.6-3.3); Total Bilirubin 0.5 mg/dL (0.3-1.2); Total Protein 6.8 g/dL (6.2-8.2)
== END | disposition home or self-care (01) ==
LOC: LABWHC1 09:02
PROVIDERS: ATTEND Family Medicine
DX: K81.0 Acute cholecystitis (principal); R10.84 Generalized abdominal pain
CPT/HCPCS: 36415; 80076; 82150; 82248; 83690; 85025

== ENCOUNTER → 2020-03-26 | Outpatient (CLI) | payer BC ==
--- NOTE | 2020-03-26 07:31 | US ---
EXAMINATION TYPE: US gallbladder DATE OF EXAM: 03/26/2020 COMPARISON: NONE CLINICAL HISTORY: R10.11 RUQ pain. Pain EXAM MEASUREMENTS: Liver Length: 16.5 cm Gallbladder Wall: .2 cm CBD: .5 cm Right Kidney: 10.4 x 4.4 x 4.2 cm Pancreas: wnl Liver: wnl Gallbladder: Minimal biliary sludge near the gallbladder neck. No calculi seen. Evidence for sonographic Ramey's sign: no CBD: wnl Right Kidney: wnl IMPRESSION: No sonographic evidence of cholelithiasis nor acute cholecystitis. Very minimal biliary s ludge suspected.
== END | disposition home or self-care (01) ==
LOC: RADUSWWP 07:03
PROVIDERS: ATTEND Family Medicine
DX: R10.11 Right upper quadrant pain (principal)
CPT/HCPCS: 76705

== ENCOUNTER → 2020-04-05 | Outpatient (CLI) | payer BC ==
--- NOTE | 2020-04-05 09:50 | NM ---
EXAMINATION TYPE: NM hepatobiliary w EF DATE OF EXAM: 04/05/2020 COMPARISON: Gallbladder ultrasound 10 days ago. HISTORY: Right upper quadrant pain per order. Patient states epigastric pain with heartburn, 3 months . TECHNIQUE: After the intravenous administration of 4 mCi Tc 99m Mebrofenin hepatobiliary scintigraphy is performed. Immediate images post injection. FINDINGS: There is satisfactory initial accumulation of tracer by the liver. The gallbladder is visualized wit hin 20 minutes. The small bowel activity is noted within 45 minutes. At one hour 8 ounces of oral e nsure plus is given to mimic CCK and gallbladder ejection fraction is calculated at 93 %, not deviate d from the normal range. Therefore there is no scintigraphic evidence of cystic or common bile duct obstruction to suggest acute cholecystitis. IMPRESSION: Ejection fraction is 93%, some consider this abnormal or a hyperkinetic response. Correla te clinically.
== END | disposition home or self-care (01) ==
LOC: RADNMMAIN 07:08
PROVIDERS: ATTEND Family Medicine
DX: R10.11 Right upper quadrant pain (principal); Z88.0 Allergy status to penicillin
CPT/HCPCS: 78226; A9537

== ENCOUNTER 2020-04-19 11:31 | Day surgery (SDC) | payer BC ==
[2020-04-16 16:54] VITALS: BMI 25.8
[~2020-04-19 11:31] MED LIST: ACETAMINOPHEN TAB 500 MG TAB PO ONE; DEXAMETHASONE SOD PHOSPHATE 10 MG/ML 1 ML VIAL IV ONE; HEPARIN SODIUM,PORCINE 5,000 UNIT/ML 1 ML VIAL SQ ONE; HYDROmorphone 0.5 MG/0.5 ML SYRINGE IVP PRN; LACTATED RINGERS 1,000 ML IV SCH; LIDOCAINE 1% (10MG/ML) FOR IV START INTRADERMA PRN; ONDANSETRON 4 MG/2 ML VIAL IVP ONE
[2020-04-19] MEDS ORDERED: ACETAMINOPHEN TAB 500 MG TAB ONE (11:52)
[2020-04-19] MEDS ORDERED: ONDANSETRON 4 MG/2 ML VIAL ONE (11:52)
[2020-04-19] MEDS ORDERED: HEPARIN SODIUM,PORCINE 5,000 UNIT/ML 1 ML VIAL ONE (11:52)
[2020-04-19] MEDS ORDERED: SCOPOLAMINE 1.5MG/72HR PATCH TRANSDERM ONE (12:10)
[2020-04-19] MEDS ORDERED: GLYCOPYRROLATE 0.2 MG/ML 2 ML VIAL ONE (12:51)
[2020-04-19] MEDS ORDERED: SUCCINYLCHOLINE CHLORIDE 100 MG/5 ML SYR IV ONE (12:51)
[2020-04-19] MEDS ORDERED: KETOROLAC 30 MG/ML 1 ML VIAL ONE (12:51)
[2020-04-19] MEDS ORDERED: PROPOFOL 10 MG/ML 20 ML VIAL IV ONE (12:51)
[2020-04-19] MEDS ORDERED: ROCURONIUM BROMIDE 10 MG/ML 5 ML VIAL IV ONE (12:51)
[2020-04-19] MEDS ORDERED: NEOSTIGMINE 1 MG/ML 10 ML VIAL ONE (12:51)
[2020-04-19] MEDS ORDERED: fentaNYL (PF) 50 MCG/ML 2 ML AMP ONE (12:51)
[2020-04-19] MEDS ORDERED: LIDOCAINE 1% INJ 10MG/ML (20 ML MDV) ONE (12:51)
[2020-04-19] MEDS ORDERED: BUPIVACAINE (PF) 0.25% 30 ML VIAL SQ ONE (13:12)
[2020-04-19] MEDS ORDERED: HYDROcodone/APAP 5-325MG 1 EACH TAB PO PRN (13:46)
[2020-04-19] MEDS ORDERED: NALOXONE 0.4 MG/ML 1 ML VIAL IV PRN (13:46)
--- NOTE | 2020-04-19 13:48 | P.OP ---
Date of Procedure: 04/19/20 Procedure(s) Performed: PREOPERATIVE DIAGNOSIS: Chronic cholecystitis POSTOPERATIVE DIAGNOSIS: Same PROCEDURE: Laparoscopic cholecystectomy SURGEON: Shelbie EBL: Minimal see anesthesia record ANESTHESIA: Gen. COMPLICATIONS: None OPERATIVE PROCEDURE: The patient was brought and placed on the operating room table in the supine position. The patient was placed under general anesthesia at that time. The abdomen was prepped and draped in the usual sterile fashion. A small vertical infraumbilical incision was made. The fascia was grasped with the Mariam forceps. The fascia was retracted anteriorly. The Veress needle was advanced into the peritoneal cavity. The saline drop test was normal. Insufflation took place up to 15 mmHg. A 5 mm optical trocar was advanced and the peritoneal cavity. 2 additional 5 mm trochars were placed in the right upper quadrant under direct visualization. A 12 mm trocar was advanced into the epigastric incision site. The gallbladder was retracted superiorly and laterally. The peritoneum overlying the infundibulum was bluntly dissected. The patient's cystic duct was visualized. The junction between the cystic duct common and hepatic duct was identified. The cystic duct was then divided after placement of 3 12 mm clips on the patient's side and one on the specimen side. The cystic artery was identified and clipped as well. A small vessel was seen along the gallbladder fossa and clipped as well. The gallbladder was then removed from the liver bed using electrocautery. The gallbladder was then removed from the epigastric trocar site with an Endo Catch bag. The gallbladder fossa was irrigated with saline. There was no evidence of any bleeding or biliary drainage seen. The fascia at the 12 millimeter site was closed using a Deandre-Andrea 0 Vicryl stitch. The trochars were then removed. The skin at all 4 sites was closed using a 4-0 Monocryl stitch. Skin glue was utilized on the incision sites. At the end of this procedure the sponge and needle counts were correct. DISPOSITION: Stable to the recovery room
[2020-04-19 14:06] VITALS: RESP 16; TEMP 97.4
[2020-04-19 15:18] VITALS: BP 110/63; PULSE 75
== END 2020-04-19 15:44 | disposition home or self-care (01) ==
LOC: OR 11:31
PROVIDERS: ATTEND Surgery
DX: K81.1 Chronic cholecystitis (principal); Z88.0 Allergy status to penicillin; Z88.7 Allergy status to serum and vaccine; Z82.49 Family history of ischemic heart disease and other diseases of the circulatory system; Z80.3 Family history of malignant neoplasm of breast
CPT/HCPCS: 81025; 88304; 47562; J1644; J1100; J2710; J0690; J2405; J2001; J3010; J1885; J0330; J2704

== ENCOUNTER → 2020-04-26 | Outpatient (CLI) | payer BC ==
--- NOTE | 2020-04-26 15:21 | US ---
EXAMINATION TYPE: US venous doppler duplex LE LT DATE OF EXAM: 04/26/2020 3:07 PM COMPARISON: NONE CLINICAL HISTORY: 29-year-old female DVT I82.409. Pain left leg, cholecystectomy 1 week ago SIDE PERFORMED: left TECHNIQUE: The lower extremity deep venous system is examined utilizing real time linear array sonog puma with graded compression, doppler sonography and color-flow sonography. FINDINGS: VESSELS IMAGED: External Iliac Vein (EIV) Common Femoral Vein Deep Femoral Vein Greater Saphenous Vein * Femoral Vein Popliteal Vein Small Saphenous Vein * Proximal Calf Veins (* superficial vessels) Left Leg: No evidence of DVT IMPRESSION: No evidence for DVT within the left lower extremity imaged from the groin to the upper calf.
== END | disposition home or self-care (01) ==
LOC: RADUSWWP 14:46
PROVIDERS: ATTEND Surgery
DX: I82.409 Acute embolism and thrombosis of unspecified deep veins of unspecified lower extremity (principal)

== ENCOUNTER → 2021-02-28 | Outpatient (CLI) | payer BC ==
--- NOTE | 2021-02-28 10:07 | XR ---
EXAMINATION TYPE: XR foot complete LT DATE OF EXAM: 02/28/2021 CLINICAL HISTORY: pain TECHNIQUE: Frontal, lateral and oblique images of the left foot are obtained. COMPARISON: None. FINDINGS: There is no acute fracture/dislocation evident. The joint spaces appear within normal [place] its. The overlying soft tissue appears unremarkable. IMPRESSION: There is no acute fracture or dislocation. ICD 10 NO FRACTURE, INITIAL EVALUATION
--- NOTE | 2021-02-28 10:08 | XR ---
EXAMINATION TYPE: XR calcaneus 2V RT DATE OF EXAM: 02/28/2021 COMPARISON: NONE HISTORY: Pain TECHNIQUE: 2 views of the os calcis are submitted. FINDINGS: Small plantar calcaneal spur detected. No evidence for fracture or bony lesion. IMPRESSION: Small plantar calcaneal spur.
== END | disposition home or self-care (01) ==
LOC: RADXRMAIN 09:27
PROVIDERS: ATTEND Family Medicine
DX: M77.31 Calcaneal spur, right foot (principal); M79.672 Pain in left foot

== ENCOUNTER → 2024-09-12 | Outpatient (CLI) | payer BC ==
--- NOTE | 2024-09-12 13:46 | XR ---
EXAMINATION TYPE: XR chest 2V DATE OF EXAM: 09/12/2024 1:15 PM COMPARISON: 11/14/2022 CLINICAL INDICATION: Female, 34 years old with history of J18.9 Pneumonia, , TECHNIQUE: Frontal and lateral views FINDINGS: Heart normal size. Some patchy medial left basilar/retrocardiac opacity is noted. No consolidation or pleural effusion. Redemonstrated surgical clips right upper quadrant. IMPRESSION: Either patchy atelectasis versus early patchy medial left basilar pneumonia. [facility], , 09/12/2024 1:44 PM
== END | disposition home or self-care (01) ==
LOC: RADXRMAIN 12:33
PROVIDERS: ATTEND Family Medicine
DX: J18.9 Pneumonia, unspecified organism (principal)
CPT/HCPCS: 71046